=== PATIENT | female | born 1955 | race African-American/Black ===

== ENCOUNTER 2018-03-27 15:19 | Emergency (ER) | payer OTHER ==
[2018-03-27 15:23] VITALS: TEMP 97.9; BMI 20.9
[2018-03-27] MEDS ORDERED: SODIUM CHLORIDE 0.9% 500 ML INFUS.BAG IV ONE (16:39)
[2018-03-27] MEDS ORDERED: ONDANSETRON 4 MG/2 ML VIAL IVPUSH ONE (16:40)
[2018-03-27] MEDS ORDERED: MECLIZINE HCL 25 MG TABLET (FP) PO ONE (16:55)
--- NOTE | 2018-03-27 16:55 | PDOC ---
History of Present Illness - General History Source: Patient, Family Exam Limitations: No Limitations - History of Present Illness Initial Comments: 03/27/18 17:01 The patient is a 62-year-old female with a past medical history of hypertension , CVA (residual R sided arm pain, 5 years ago) presents to the emergency department with weakness. The patient reports for the past 3-4 days shes been experiencing generalized weakness accompanied with confusion and vertigo. As per daughter, the patients been experiencing difficulty balancing thats worse with position changing. Denies fever, chills, nausea, vomiting, focal changes, slurred speech, or paresthesia. Allergies: NKA Social history: None reported Surgical history: None reported PCP: Roldan Navarro v <Shaye Low - Last Filed: 03/27/18 17:01> - General History Source: Patient, Family <Yesenia Moore - Last Filed: 03/27/18 20:36> - General Chief Complaint: Weakness Stated Complaint: DIZZINESS/WEAKNESS Time Seen by Provider: 03/27/18 16:35 Past History <Shaye Low - Last Filed: 03/27/18 17:01> - Past Medical History CVA: Yes COPD: No HTN: Yes - Immunization History Immunization Up to Date: Yes - Suicide/Smoking/Psychosocial Hx Smoking Status: No Smoking History: Never smoked Have you smoked in the past 12 months: No Hx Alcohol Use: No Substance Use Type: None <Yesenia Moore - Last Filed: 03/27/18 20:36> - Past Medical History Allergies/Adverse Reactions: Allergies Allergy/AdvReac Type Severity Reaction Status Date / Time No Known Allergies Allergy Verified 03/27/18 15:23 Home Medications: Ambulatory Orders Amlodipine Besylate [Norvasc -] 10 mg PO DAILY 06/11/14 Aspirin [ASA -] 81 mg PO DAILY 06/11/14 Meloxicam [Mobic -] 15 mg PO PRN PRN 06/11/14 Meclizine HCl 25 mg PO QID PRN #25 tablet MDD 4 03/27/18 Review of Systems - Review of Systems Able to Perform ROS?: Yes Comments:: 03/27/18 17:01 GENERAL/CONSTITUTIONAL: No fever or chills. (+) Generalized weakness and confusion. HEAD, EYES, EARS, NOSE AND THROAT: No change in vision. No ear pain or discharge. No sore throat. CARDIOVASCULAR: No chest pain or shortness of breath. RESPIRATORY: No cough, wheezing, or hemoptysis. GASTROINTESTINAL: No nausea, vomiting, diarrhea or constipation. GENITOURINARY: No dysuria, frequency, or change in urination. MUSCULOSKELETAL: No joint or muscle swelling or pain. No neck or back pain. SKIN: No rash NEUROLOGIC: (+) Vertigo. No headache, loss of consciousness, or change in strength/sensation. ENDOCRINE: No increased thirst. No abnormal weight change. HEMATOLOGIC/LYMPHATIC: No anemia, easy bleeding, or history of blood clots. ALLERGIC/IMMUNOLOGIC: No hives or skin allergy. <Shaye Low - Last Filed: 03/27/18 17:01> *Physical Exam - Vital Signs Last Vital Signs Temp Pulse Resp BP Pulse Ox 97.9 F 80 18 123/70 100 03/27/18 15:20 03/27/18 15:20 03/27/18 15:20 03/27/18 15:20 03/27/18 15:20 - Physical Exam Comments: 03/27/18 17:03 GENERAL: Awake, alert, and fully oriented, in no acute distress HEAD: No signs of trauma EYES: PERRLA, EOMI, sclera anicteric, conjunctiva clear ENT: Auricles normal inspection, hearing grossly normal, nares patent, oropharynx clear without exudates. Moist mucosa NECK: Normal ROM, supple, no lymphadenopathy, JVD, or masses LUNGS: Breath sounds equal, clear to auscultation bilaterally. No wheezes, and no crackles HEART: Regular rate and rhythm, normal S1 and S2, no murmurs, rubs or gallops ABDOMEN: Soft, nontender, normoactive bowel sounds. No guarding, no rebound. No masses EXTREMITIES: Normal range of motion, no edema. No clubbing or cyanosis. No cords, erythema, or tenderness NEUROLOGICAL: 5/5 strength in extremity. AOx3. Cranial nerves 2-12 intact. Finger to nose normal. Alternation hands movements normal, jinny-hallpike with L. sided nystagmus with horizontal. SKIN: Warm, Dry, normal turgor, no rashes or lesions noted. <Shaye Low - Last Filed: 03/27/18 17:01> - Vital Signs Last Vital Signs Temp Pulse Resp BP Pulse Ox 97.9 F 80 18 123/70 100 03/27/18 15:20 03/27/18 15:20 03/27/18 15:20 03/27/18 15:20 03/27/18 15:20 <Yesenia Moore - Last Filed: 03/27/18 20:36> ED Treatment Course - LABORATORY CBC & Chemistry Diagram: 03/27/18 17:30 03/27/18 17:30 <Yesenia Moore - Last Filed: 03/27/18 20:36> Medical Decision Making - Medical Decision Making 03/27/18 16:53 62 yo F with h/o prior cva htn here with 3 - 4 days vertigo, generalized weakness n/v and intermittent confusion. on exam pt with positive jinny hallpike to left, normal cerebellar exam however gait not tested due to sxs. plan meclizine, ct head due to h/o cva, labs ro electrolyte abnormality, cbc cmp uti r/o infection, cxr. ekg. reassess. 03/27/18 20:35 pt feeliing much improved. gait normal. tolerating PO. d?w Dr Kang covering now for dr. hargrove who has retired. will see pt on thursday in 3 days. given rx for meclizine. told to return for any problems or concerns. also given referral for dr. harrison duque. <Yesenia Moore - Last Filed: 03/27/18 20:36> *DC/Admit/Observation/Transfer - Attestations Scribe Attestion: 03/27/18 17:03 Documentation prepared by Shaye Low, acting as medical assistant ob gyn for Yesenia Moore MD. <Shaye Low - Last Filed: 03/27/18 17:01> - Discharge Dispostion Decision to Admit order: No <Yesenia Moore - Last Filed: 03/27/18 20:36> Diagnosis at time of Disposition: Benign positional vertigo - Discharge Dispostion Disposition: HOME Condition at time of disposition: Improved - Prescriptions Prescriptions: Meclizine HCl 25 mg PO QID PRN #25 tablet MDD 4 PRN Reason: Vertigo - Referrals Referrals: Ruddy Patterson DO [Staff Physician] - Wilfredo Webb MD [Staff Physician] - - Patient Instructions Printed Discharge Instructions: Benign Paroxysmal Positional Vertigo Additional Instructions: you should follow up with Dr Kang, see referral information for his phone number. return for any problems or concerns. you can take meclizine 25 mg every 6 hrs as needed for dizziness or vertigo. you should see Dr Kang on thursday of next. week. you should also follow up with a nuerologist. you can call Dr Patterson, see referral information or receive a referrral from Dr Kang.
[2018-03-27 17:36] LABS: BASO % 0.7 % (0-2.0); HEMATOCRIT 34.1 % (32.4-45.2); HEMOGLOBIN 11.1 GM/dL (10.7-15.3); LYMPH % 32.1 % (8-40); MCH 26.8 pg (25.7-33.7); MCHC 32.6 g/dl (32.0-36.0); MEAN CELL VOLUME 82.4 fl (80-96); MEAN PLT VOLUME 8.7 fl (7.5-11.1); MONO % 7.4 % (3.8-10.2); NEUT % 54.8 % (42.8-82.8); PLATELET COUNT 165 K/MM3 (134-434); RBC 4.15 M/mm3 (3.60-5.2); RDW 14.5 % (11.6-15.6); WHITE BLOOD COUNT 5.8 K/mm3 (4.0-10.0)
[2018-03-27] MEDS ORDERED: MECLIZINE HCL 25 MG TABLET (FP) ONE (17:44)
[2018-03-27] MEDS ORDERED: ONDANSETRON 4 MG/2 ML VIAL ONE (17:44)
[2018-03-27 17:46] LABS: URINE APPEARANCE CLEAR; URINE BILIRUBIN NEGATIVE (<2.0 mg/dL); URINE COLOR LTYELLOW; URINE GLUCOSE (UA) NEGATIVE (NEGATIVE); URINE KETONE NEGATIVE (NEGATIVE); URINE LEUK ESTERASE NEGATIVE (NEGATIVE); URINE NITRITE NEGATIVE (NEGATIVE); URINE PROTEIN NEGATIVE (NEGATIVE); URINE UROBILINOGEN NEGATIVE mg/dL (0.2-1.0)
[2018-03-27 18:00] LABS: ALBUMIN 3.4 g/dl (3.4-5.0); ANION GAP 7 MMOL/L (8-16); BLOOD UREA NITROGEN 16 mg/dL (7-18); CALCIUM 8.7 mg/dL (8.5-10.1); CHLORIDE 111 mmol/L (98-107); CO2 29 mmol/L (21-32); CREATININE 0.9 mg/dL (0.55-1.02); GLUCOSE,RANDOM 91 mg/dL (74-106); SGOT/AST 17 U/L (15-37); SGPT/ALT 22 U/L (12-78); SODIUM 147 mmol/L (136-145); TOT PROT 6.8 g/dl (6.4-8.2)
[2018-03-27 18:01] LABS: ALK PHOS 59 U/L (45-117)
[2018-03-27 18:07] LABS: BILIRUBIN,TOTAL < 0.1 mg/dL (0.2-1.0)
[2018-03-27 20:01] VITALS: BP 131/80; PULSE 60
--- NOTE | 2018-03-29 13:50 | EKG ---
Test Reason : Blood Pressure : / mmHG Vent. Rate : 054 BPM Atrial Rate : 054 BPM P-R Int : 178 ms QRS Dur : 082 ms QT Int : 446 ms P-R-T Axes : 041 007 001 degrees QTc Int : 422 ms SINUS BRADYCARDIA MINIMAL VOLTAGE CRITERIA FOR LVH, MAY BE NORMAL VARIANT SEPTAL INFARCT (CITED ON OR BEFORE 12-MAY-2016) ABNORMAL ECG WHEN COMPARED WITH ECG OF 12-MAY-2016 15:45, NO SIGNIFICANT CHANGE WAS FOUND Confirmed by MARGARITA LANE MD ([id number]) on 03/29/2018 1:50:10 PM Referred By: Confirmed By:MARGARITA LANE MD
== END 2018-03-27 20:38 | disposition home or self-care (01) ==
LOC: JER 15:19
PROC: 3E0337Z Introduction of Electrolytic and Water Balance Substance into Peripheral Vein, Percutaneous Approach (ICD-10-PCS; principal; 2018-03-27)
PROC: 3E033GC Introduction of Other Therapeutic Substance into Peripheral Vein, Percutaneous Approach (ICD-10-PCS; 2018-03-27)
DX: R26.81 Unsteadiness on feet (principal); H81.10 Benign paroxysmal vertigo, unspecified ear
CPT/HCPCS: 36415; 70450-TC; 80053; 81003; 85025; 93005; 93010; 99283-25

== ENCOUNTER 2020-11-28 07:38 | Day surgery (SDC) | payer OTHER ==
[2020-11-26 12:39] VITALS: BMI 21.2
[2020-11-28] MEDS: TROPICAMIDE 1% OPHTH SOLN 15 ML BOTTLE ONE ×3 (08:40→08:50)
[2020-11-28] MEDS: CIPROFLOXACIN 0.3% EYE DROPS 5 ML BOTTLE ONE ×3 (08:40→08:50)
[2020-11-28] MEDS: CYCLOPENTOLATE 2% OPHTH SOLN 2 ML BOTTLE ONE ×3 (08:40→08:50)
[2020-11-28] MEDS: PHENYLEPHRINE 2.5% OPHTH SOLN 15 ML BOTTLE ONE ×3 (08:40→08:50)
[2020-11-28] MEDS ORDERED: LIDOCAINE 1% P/F 10 MG/ML VIAL ONE (08:55)
[2020-11-28] MEDS ORDERED: TETRACAINE 0.5% OPHTH SOLN 2 ML BOTTLE ONE (08:55)
[2020-11-28] MEDS ORDERED: NEO/POLYMYX B SULF/DEXAMETH OPHTHALMIC 5ML BOTTLE ONE (08:55)
[2020-11-28] MEDS ORDERED: CARBACHOL 0.01% INTRA-OCULAR 1.5 ML VIAL ONE (08:55)
[2020-11-28] MEDS ORDERED: BSS (NA/CA/MG/K) BALANCED SALT SOLUTION OPHTH SOLN 15 ML BOTTLE ONE (08:55)
[2020-11-28] MEDS ORDERED: MIDAZOLAM HCL 2 MG/2 ML SINGLE DOSE VIAL ONE (09:42)
[2020-11-28 10:20] VITALS: TEMP 98
[2020-11-28 10:46] VITALS: BP 128/60; PULSE 67
== END 2020-11-28 10:46 | disposition home or self-care (01) ==
LOC: FASU 07:38
PROVIDERS: ATTEND Ophthalmology
PROC: 08RK3JZ Replacement of Left Lens with Synthetic Substitute, Percutaneous Approach (ICD-10-PCS; principal; 2020-11-28 09:46)
DX: H26.8 Other specified cataract (principal)

== ENCOUNTER 2020-12-12 07:47 | Day surgery (SDC) | payer OTHER ==
[2020-12-10 13:06] VITALS: BMI 21.6
[2020-12-12] MEDS: TROPICAMIDE 1% OPHTH SOLN 15 ML BOTTLE ONE ×3 (08:30→08:40)
[2020-12-12] MEDS: CYCLOPENTOLATE 2% OPHTH SOLN 2 ML BOTTLE ONE ×3 (08:30→08:40)
[2020-12-12] MEDS: PHENYLEPHRINE 2.5% OPHTH SOLN 15 ML BOTTLE ONE ×3 (08:30→08:40)
[2020-12-12] MEDS: CIPROFLOXACIN 0.3% EYE DROPS 5 ML BOTTLE ONE ×3 (08:30→08:40)
[2020-12-12] MEDS ORDERED: MIDAZOLAM HCL 2 MG/2 ML SINGLE DOSE VIAL ONE (09:42)
[2020-12-12] MEDS ORDERED: NEO/POLYMYX B SULF/DEXAMETH OPHTHALMIC 5ML BOTTLE ONE (09:45)
[2020-12-12] MEDS ORDERED: BSS (NA/CA/MG/K) BALANCED SALT SOLUTION OPHTH SOLN 15 ML BOTTLE ONE (09:45)
[2020-12-12] MEDS ORDERED: LIDOCAINE 1% P/F 10 MG/ML VIAL ONE (09:45)
[2020-12-12] MEDS ORDERED: TETRACAINE 0.5% OPHTH SOLN 2 ML BOTTLE ONE (09:45)
[2020-12-12] MEDS ORDERED: CARBACHOL 0.01% INTRA-OCULAR 1.5 ML VIAL ONE (09:45)
[2020-12-12 10:31] VITALS: TEMP 97.7
[2020-12-12 11:44] VITALS: BP 134/71; PULSE 65
== END 2020-12-12 11:00 | disposition home or self-care (01) ==
LOC: FASU 07:47
PROVIDERS: ATTEND Ophthalmology
PROC: 08RJ3JZ Replacement of Right Lens with Synthetic Substitute, Percutaneous Approach (ICD-10-PCS; principal; 2020-12-12 10:04)
DX: H26.8 Other specified cataract (principal)